=== PATIENT | male | born 1955 | race Caucasian/White ===

== ENCOUNTER 2017-10-16 | Day surgery (SDC) | END 2017-10-16 22:57 | disposition home or self-care (01) ==

== ENCOUNTER 2017-10-17 07:23 | Day surgery (SDC) | END 2017-10-17 11:04 | disposition home or self-care (01) ==

== ENCOUNTER 2017-11-01 08:07 | Day surgery (SDC) | payer OTHER ==
[~2017-11-01 08:07] MED LIST: HYDMOR2 PO; META800 PO; OMEP10ER; OMEP20ER PO; OXYC15ER PO; VITAMIN A10000 UNIT PO; VITAMIN D310000 UNI1 PO; Zofran8 MG PO
[2017-11-01 09:58] LABS: BASOPHILS ABSOLUTE AUTO 0.01 K/mm3 (0.00-0.23); BASOPHILS PERCENT AUTO 1 % (0-2); EOSINOPHILS ABSOLUTE AUTO 0.04 K/mm3 (0.00-0.68); EOSINOPHILS PERCENT AUTO 3 % (0-6); Hematocrit 26.6 % (37.0-53.0); IMMATURE GRAN ABSOLUTE AUTO 0.01 K/mm3 (0.00-0.10); IMMATURE GRAN PERCENT AUTO 1 % (0-1); LYMPHOCYTES ABSOLUTE AUTO 0.84 K/mm3 (0.84-5.20); LYMPHOCYTES PERCENT AUTO 53 % (21-46); MONOCYTES ABSOLUTE AUTO 0.07 K/mm3 (0.16-1.47); MONOCYTES PERCENT AUTO 4 % (4-13); Mean Corpuscular HGB 31.6 pg (26.0-34.0); Mean Corpuscular HGB Conc 33.8 g/dL (31.5-36.5); Mean Corpuscular Volume 93 fL (80-100); Mean Platelet Volume 9.1 fL (9.1-12.4); NEUTROPHILS ABSOLUTE AUTO 0.63 K/mm3 (1.96-9.15); NEUTROPHILS PERCENT AUTO 39 % (41-73); RDW Coefficient Variation 13.2 % (11.7-14.2); RDW Standard Deviation 45.2 fL (35.1-46.3); Red Blood Cell Count 2.85 M/mm3 (4.30-5.90)
[2017-11-01 10:02] LABS: Platelet Count 33 K/mm3 (150-400)
[2017-11-01 10:13] LABS: Alanine Aminotransfer (ALT/SGP 43 U/L (12-78); Albumin, Blood 2.8 g/dL (3.4-5.0); Albumin/Globulin Ratio 0.9 (0.8-1.8); Alk Phos 165 U/L (50-136); Anion Gap 10 mmol/L (6-16); Aspartate Aminotrans (AST/SGOT 31 U/L (12-37); Bilirubin, Total 0.4 mg/dL (0.1-1.0); Blood Urea Nitrogen 17 mg/dL (8-24); Bun/Creatinine Ratio 28.1 (12.0-20.0); CO2, Blood 25 mmol/L (21-32); Calcium, Blood 8.8 mg/dL (8.5-10.1); Chloride, Blood 104 mmol/L (98-108); Glomerular Filtration Rate >60 (60-); Glucose, Blood 70 mg/dL (70-99); Potassium, Blood 3.7 mmol/L (3.5-5.5); Sodium, Blood 139 mmol/L (136-145); Total Protein, Blood 5.8 g/dL (6.4-8.2)
== END 2017-11-01 09:13 | disposition home or self-care (01) ==
LOC: ATC 08:07
PROVIDERS: Internal Medicine Hematology & Oncology
DX: C25.0 Malignant neoplasm of head of pancreas (principal)
CPT/HCPCS: 36591; 80053; 85025; 86301; J1642

== ENCOUNTER → 2017-11-06 | Outpatient (CLI) | payer OTHER ==
[~2017-11-06] MED LIST changes: +CIPR250 PO
[2017-11-06 15:31] LABS: Hematocrit 27.5 % (37.0-53.0); Hemoglobin 9.2 g/dL (13.5-17.5); Mean Corpuscular HGB 31.7 pg (26.0-34.0); Mean Corpuscular HGB Conc 33.5 g/dL (31.5-36.5); Mean Corpuscular Volume 95 fL (80-100); Mean Platelet Volume 9.8 fL (9.1-12.4); NRBC ABSOLUTE 0.03 K/mm3 (0.00-0.02); NRBC Auto 0.3 /100 WBC (0.0-0.2); Platelet Count 282 K/mm3 (150-400); RDW Coefficient Variation 14.1 % (11.7-14.2); RDW Standard Deviation 48.2 fL (35.1-46.3); White Blood Cell Count 9.26 K/mm3 (4.00-11.30)
[2017-11-06 16:29] LABS: BAND PERCENT MAN 8 % (0-8); BASOPHILS PERCENT MAN 0 % (0-2); EOSINOPHILS PERCENT MAN 0 % (0-6); LYMPHOCYTES ABSOLUTE MAN 1.75 K/mm3 (0.84-5.20); LYMPHOCYTES PERCENT MAN 19 % (21-46); METAMYELOCYTE ABSOLUTE MAN 0.27 K/mm3 (0.00-0.00); METAMYELOCYTE PERCENT MAN 3 % (0-0); MONOCYTES ABSOLUTE MAN 1.01 K/mm3 (0.16-1.47); MONOCYTES PERCENT MAN 11 % (4-13); MYELOCYTE ABSOLUTE MAN 0.37 K/mm3 (0.00-0.00); MYELOCYTE PERCENT MAN 4 % (0-0); NEUTROPHILS ABSOLUTE MAN 5.83 K/mm3 (1.96-9.15); SEG NEUTROPHILS PERCENT MAN 55 % (41-73); TOTAL CELLS COUNTED 100
== END | disposition home or self-care (01) ==
LOC: LAB 15:05 → LAB SHORT 15:05
PROVIDERS: Internal Medicine Hematology & Oncology
DX: C25.0 Malignant neoplasm of head of pancreas (principal); D70.1 Agranulocytosis secondary to cancer chemotherapy
CPT/HCPCS: 85025

== ENCOUNTER 2017-11-11 00:09 | Day surgery (SDC) | payer OTHER | END 2017-11-11 22:53 | disposition home or self-care (01) | LOC: ATC 00:09 | DX: C25.0 Malignant neoplasm of head of pancreas (principal); D70.1 Agranulocytosis secondary to cancer chemotherapy ==

== ENCOUNTER 2017-11-28 00:15 | Day surgery (SDC) | payer OTHER | END 2017-11-28 22:36 | disposition home or self-care (01) | LOC: ATC 00:15 | DX: D70.1 Agranulocytosis secondary to cancer chemotherapy (principal); C25.0 Malignant neoplasm of head of pancreas; C78.02 Secondary malignant neoplasm of left lung; C78.01 Secondary malignant neoplasm of right lung | CPT/HCPCS: J1642 ==